=== PATIENT | male | born 1970 | race Caucasian/White ===

== ENCOUNTER 2021-07-08 14:02 | Emergency (ER) | payer MEDICARE ==
--- NOTE | 2021-07-08 14:11 | ERPHSYRPT ---
- History of Present Illness Time Seen by Provider: 07/08/21 14:10 Source: patient Exam Limitations: no limitations Physician History: This is a 51-year-old white male who has no known drug allergies and is not diabetic and presents with an injury to the anterior tibia of his left lower extremity. This occurred approximately 1230 this afternoon. Patient describes falling through floor and hitting his left pritchard. There was tenderness and swelling. The tenderness and swelling worsened and he felt that he may have injured it worse than he thought. Patient is able to walk on this area. He is not on any blood thinning medication. Occurred: this afternoon Injuries/Pain Location: lower extremity (Left lower leg) Loss of Consciousness: no loss of consciousness Quality: aching Severity of Pain-Max: mild Severity of Pain-Current: mild Modifying Factors: Improves With: movement Associated Symptoms (Fall): extremity injury (Left lower leg. Tibia midway) Allergies/Adverse Reactions: No Known Drug Allergies Allergy (Verified 07/08/21 14:32) Home Medications: Omeprazole/Sodium Bicarbonate [Zegerid 20 mg Capsule] 1 each PO DAILY 05/24/13 [History] lisinopriL [Lisinopril] 1 ea DAILY 07/08/21 [History] Hx Tetanus, Diphtheria Vaccination/Date Given: Yes Hx Influenza Vaccination/Date Given: No Hx Pneumococcal Vaccination/Date Given: No Travel Risk - International Travel Have you traveled outside of the country in past 3 weeks: No - Coronavirus Screening Are you exhibiting any of the following symptoms?: No Close contact with a COVID-19 positive Pt in past 14-21 Days: No - Review of Systems Constitutional: No Symptoms Eyes: No Symptoms Ears, Nose, & Throat: No Symptoms Respiratory: No Symptoms Cardiac: No Symptoms Abdominal/Gastrointestinal: No Symptoms Genitourinary Symptoms: No Symptoms Musculoskeletal: Injury (Left lower legmidway) Skin: Other (Abrasion sites at the level of injury) Neurological: No Symptoms Psychological: No Symptoms Endocrine: No Symptoms Hematologic/Lymphatic: No Symptoms Immunological/Allergic: No Symptoms - Past Medical History Pertinent Past Medical History: Yes Neurological History: No Pertinent History ENT History: No Pertinent History Cardiac History: Hypertension Respiratory History: Sleep Apnea Endocrine Medical History: No Pertinent History Musculoskeletal History: Other GI Medical History: GERD, Gallbladder Disease, Hemorrhoids, Hernia History: No Pertinent History Psycho-Social History: Depression Male Reproductive Disorders: No Pertinent History Other Medical History: degenerative right knee - Past Surgical History Past Surgical History: Yes Neuro Surgical History: No Pertinent History Cardiac: No Pertinent History Respiratory: No Pertinent History Gastrointestinal: Hernia Repair, Other Genitourinary: No Pertinent History Musculoskeletal: No Pertinent History Male Surgical History: No Pertinent History Other Surgical History: gastric bypass - Social History Smoking Status: Former smoker How long have you smoked: 25 yrs Exposure to second hand smoke: Yes Drug Use: marijuana Patient Lives Alone: No - Nursing Vital Signs Nursing Vital Signs: Initial Vital Signs Temperature 98.0 F 07/08/21 14:27 Pulse Rate 73 07/08/21 14:27 Respiratory Rate 18 07/08/21 14:27 Blood Pressure 135/80 07/08/21 14:27 O2 Sat by Pulse Oximetry 99 07/08/21 14:27 Pain Scale Pain Intensity 9 - [place] Coma Score Best Eye Response ([place]iles): (4) open spontaneously Best Verbal Response ([place]): (5) oriented Best Motor Response ([place]): (6) obeys commands [place] Total: 15 - Physical Exam General Appearance: no apparent distress, alert, anxiety, obese Head Injury: no evidence of injury Eye Exam: PERRL/EOMI, eyes nml inspection ENT Exam: airway nml Neck Exam: supple, trachea midline, full range of motion, normal alignment, normal inspection Respiratory/Chest Exam: No chest tenderness, No respiratory distress Gastrointestinal Exam: No tenderness Rectal Exam: not done Back Exam: normal inspection, normal range of motion, No CVA tenderness, No vertebral tenderness Extremity Exam: normal range of motion, capillary refill <3 sec, swelling (Left lower extremity mid tibia), tenderness (At the level of mid tibia on the left. There are superficial skin abrasions at this level as well), other (No active bleeding. No foreign body) Neurologic Exam: alert, oriented x 3, cooperative, information technology officer II-XII nml as tested, normal mood/affect, nml cerebellar function, nml station & gait, sensation nml Skin Exam: other (Abrasions with bruising at the level of injury in the left tibia.) SpO2 Interpretation: normal O2 Delivery: Room Air - Course Nursing assessment & vital signs reviewed: Yes Ordered Tests: Active Orders 24 hr Category Date Time Status LOWER LEG Stat Exams 07/08/21 15:29 Taken - Progress Progress: unchanged Progress Note: 07/08/21 16:20 X-ray left lower leg shows no evidence of any acute fracture or dislocation. There is no evidence of foreign body radiographically. Counseled pt/family regarding: diagnosis, need for follow-up, rad results - Departure Departure Disposition: Home Clinical Impression: Injury of left lower leg, Abrasion, left lower leg, initial encounter Condition: Stable Critical Care Time: No Referrals: PHUONG LLOYD MD [Primary Care Provider] - Additional Instructions: Keep abrasion site clean daily with soap and water. Do not use lotions ointments or creams to site. Cover the site with a bandage every day. Elevate the leg above level of heart when not ambulating. Ice pack to the site 3 times a day for the next 48 hours. Take your antibiotics as prescribed. Prescriptions: Cephalexin Mh 500 mg [Keflex 500 mg] 500 mg PO TID #21 cap
[2021-07-08 14:29] VITALS: O2SAT 99
[2021-07-08 16:32] VITALS: BP 137/82; PULSE 76
--- NOTE | 2021-07-08 16:36 | XRAY ---
Indication: Pain following fall. Comparison: None 2 view left lower leg demonstrates osteopenia, diffuse soft tissue swelling/edema, minimal/mild tricompartmental knee degenerative arthropathy, posterior knee fabella, and tiny anterior leg soft tissue calcified granulomas. No other bony, articular, or soft tissue abnormalities.
== END 2021-07-08 16:30 | disposition home or self-care (01) ==
LOC: ED 14:02
DX: S80.812A Abrasion, left lower leg, initial encounter (principal); W17.89XA Other fall from one level to another, initial encounter; Y93.89 Activity, other specified; Y92.89 Other specified places as the place of occurrence of the external cause; I10 Essential (primary) hypertension
CPT/HCPCS: 73590; 99283

== ENCOUNTER 2023-05-04 11:56 | Emergency (ER) | payer MEDICARE ==
[2023-05-04] MEDS ORDERED: TORAdol 30 mg Injection IM ONE (12:10)
[2023-05-04 12:17] VITALS: O2SAT 99
[2023-05-04] MEDS ORDERED: TORAdol 30 mg Injection ONE (12:23)
--- NOTE | 2023-05-04 12:37 | XRAY ---
Indication: Nonradiating low back pain. Multiple contiguous axial images obtained through the lumbar spine. Sagittal and coronal reformatted images obtained. Comparison: CT abdomen/pelvis January 19, 2018. Axial images negative for acute fracture, suspicious bony lesions, or spinal canal stenosis. Stable mild bilateral L5-S1 degenerative facet arthropathy. L4-L5 disc level again demonstrates mild annular disc osteophyte complex again greater as well as right with subsequent right foraminal stenosis. Sagittal and coronal reformatted images again demonstrates normal lumbar lordosis with minimal levoscoliosis and mild L2-L3/L4-L5 disc space narrowing. No acute compression fracture or subluxation. Visualized noncontrasted soft tissues again demonstrates minimal aortoiliac calcifications. Impression: Stable L2-L3 and L4-L5 degenerative disc disease. No new/acute findings.
--- NOTE | 2023-05-04 12:56 | ERPHSYRPT ---
- History of Present Illness Time Seen by Provider: 05/04/23 12:20 Source: patient Exam Limitations: no limitations Patient Subjective Stated Complaint: Patient states he believes he hurt his back on Thursday; states he twisted wrong when putting things away. C/O pain/injury to left lower back. Triage Nursing Assessment: Patient ambulated back to ER with a slow gait. Patient displaying s/s of pain when getting up out of chair in waiting room to g o back to ER room. Left lower back with no skin alterations noted; skin tone normal. Physician History: Patient is a 53-year-old white male who presents with a complaint of severe lower back pain. This pain has been present since he was lifting and twisting on . He denies any radiculopathy symptoms no problems with his bowel or bladder the pain is slightly worse on the left side.He does have a history of occasional episodes of back pain. Timing/Duration: day(s) (5) Method of Injury: twisted Quality: sharp, throbbing Back Pain Location: lumbar spine Severity of Pain-Max: severe Severity of Pain-Current: moderate Modifying Factors: Improves With: movement Associated Symptoms: No urinary incontinence, No loss of bowel control Previous symptoms: same symptoms as today Allergies/Adverse Reactions: No Known Drug Allergies Allergy (Verified 05/04/23 12:09) Home Medications: Omeprazole/Sodium Bicarbonate [Zegerid 20 mg Capsule] 1 each PO DAILY 05/24/13 [History] lisinopriL [Lisinopril] 1 ea DAILY 07/08/21 [History] Hx Tetanus, Diphtheria Vaccination/Date Given: Yes Hx Influenza Vaccination/Date Given: No Hx Pneumococcal Vaccination/Date Given: No Immunizations Up to Date: Yes Travel Risk - International Travel Have you traveled outside of the country in past 3 weeks: No - Coronavirus Screening Are you exhibiting any of the following symptoms?: No Close contact with a COVID-19 positive Pt in past 14-21 Days: No - Vaccine Status Have you recieved a Covid-19 vaccination: No - Review of Systems Constitutional: No Fever, No Chills Eyes: No Symptoms Ears, Nose, & Throat: No Symptoms Respiratory: No Cough, No Dyspnea Cardiac: No Chest Pain, No Edema, No Syncope Abdominal/Gastrointestinal: No Abdominal Pain, No Nausea, No Vomiting, No Diarrhea Genitourinary Symptoms: No Dysuria Musculoskeletal: Back Pain, No Neck Pain Skin: No Rash Neurological: No Dizziness, No Focal Weakness, No Sensory Changes Psychological: No Symptoms Endocrine: No Symptoms All Other Systems: Reviewed and Negative - Past Medical History Pertinent Past Medical History: Yes Neurological History: No Pertinent History ENT History: No Pertinent History Cardiac History: Hypertension Respiratory History: Sleep Apnea Endocrine Medical History: No Pertinent History Musculoskeletal History: Other GI Medical History: GERD, Gallbladder Disease, Hemorrhoids, Hernia History: No Pertinent History Psycho-Social History: Depression Male Reproductive Disorders: No Pertinent History Other Medical History: degenerative right knee - Past Surgical History Past Surgical History: Yes Neuro Surgical History: No Pertinent History Cardiac: No Pertinent History Respiratory: No Pertinent History Gastrointestinal: Hernia Repair, Other Genitourinary: No Pertinent History Musculoskeletal: No Pertinent History Male Surgical History: No Pertinent History Other Surgical History: gastric bypass - Social History Smoking Status: Former smoker How long have you smoked: 25 yrs Exposure to second hand smoke: Yes Drug Use: marijuana Patient Lives Alone: No - Nursing Vital Signs Nursing Vital Signs: Initial Vital Signs Temperature 98 F 05/04/23 12:10 Pulse Rate 66 05/04/23 12:10 Respiratory Rate 18 05/04/23 12:10 Blood Pressure 155/95 05/04/23 12:10 O2 Sat by Pulse Oximetry 99 05/04/23 12:10 Pain Scale Pain Intensity [Left lower 7 back] Pain Intensity 8 - Physical Exam General Appearance: mild distress, alert Eye Exam: PERRL/EOMI, eyes nml inspection Neck Exam: normal inspection, non-tender, supple, full range of motion, No meningismus, No midline tenderness Respiratory Exam: normal breath sounds, lungs clear, No respiratory distress Cardiovascular Exam: regular rate/rhythm, normal heart sounds Gastrointestinal Exam: soft, No tenderness, No mass Back Exam: decreased range of motion, other Extremity Exam: normal inspection, normal range of motion, No calf tenderness, No pedal edema Neurologic Exam: alert, oriented x 3, cooperative, underwriting internship II-XII nml as tested, normal mood/affect, nml station & gait, sensation nml, No motor deficits Skin Exam: normal color, warm, dry, No rash SpO2: 99 - Course Nursing assessment & vital signs reviewed: Yes - CT Exams Lumbar Spine CT Interpretation: Tele-radiologist Report, Other (Shows 2 levels of degenerative disc disease L2-3 and L4-5.) Ordered Tests: Active Orders 24 hr Category Date Time Status LUMBAR SPINE W/O [CT] Stat Exams 05/04/23 12:10 Completed Medication Summary Discontinued Medications Generic Name Dose Route Start Last Admin Trade Name Annalee PRN Reason Stop Dose Admin Ketorolac Tromethamine 60 mg 05/04/23 12:10 05/04/23 12:25 Ketorolac Tromethamine 30 Mg/Ml Inj IM 05/04/23 12:11 60 mg STAT ONE Administration Ketorolac Tromethamine Confirm 05/04/23 12:23 Ketorolac Tromethamine 30 Mg/Ml Inj Administered 05/04/23 12:24 Dose 60 mg .ROUTE .STK-MED ONE - Progress Progress: unchanged Medical Desision Making - Diagnostic Testing Radiological Interpretation: Reviewed by me - Risk of complications Low Risk: Low risk of morbidity from additional dx testing or treatment - Departure Departure Disposition: Home Clinical Impression: Degenerative disc disease Condition: Stable Critical Care Time: No Referrals: PHUONG LLOYD MD [Primary Care Provider] - Follow up/PCP as directed Instructions: Low Back Pain (DC) Prescriptions: Oxycodone HCl/Acetaminophen [Percocet 5-325 mg Tablet] 1 each PO Q6H 3 Days #12 tablet MDD 4 Diclofenac Sodium 50 mg [Voltaren 50 mg] 50 mg PO TID 5 Days #15 tablet MDD 3
[2023-05-04 13:14] VITALS: BP 110/73; PULSE 76
== END 2023-05-04 13:14 | disposition home or self-care (01) ==
LOC: ED 11:56
DX: M51.36 Other intervertebral disc degeneration, lumbar region (principal); M54.50 Low back pain, unspecified; I10 Essential (primary) hypertension; Z79.891 Long term (current) use of opiate analgesic; Z79.899 Other long term (current) drug therapy; Z28.310 Unvaccinated for COVID-19
CPT/HCPCS: 72131; 96372; 99283; J1885

== ENCOUNTER 2025-01-13 15:27 | Emergency (ER) | payer MEDICARE ==
--- NOTE | 2025-01-13 15:50 | ERPHSYRPT ---
- History of Present Illness Time Seen by Provider: 01/13/25 15:49 Allergies/Adverse Reactions: No Known Drug Allergies Allergy (Verified 01/13/25 16:36) Home Medications: Omeprazole/Sodium Bicarbonate [Zegerid 20 mg Capsule] 1 each PO DAILY 05/24/13 [History] lisinopriL [Lisinopril] 1 ea DAILY 07/08/21 [History] Hx Tetanus, Diphtheria Vaccination/Date Given: Yes Hx Influenza Vaccination/Date Given: No Hx Pneumococcal Vaccination/Date Given: No - Past Medical History Pertinent Past Medical History: Yes Neurological History: No Pertinent History ENT History: No Pertinent History Cardiac History: Hypertension Respiratory History: Sleep Apnea Endocrine Medical History: No Pertinent History Musculoskeletal History: Other GI Medical History: GERD, Gallbladder Disease, Hemorrhoids, Hernia History: No Pertinent History Psycho-Social History: Depression Male Reproductive Disorders: No Pertinent History Other Medical History: degenerative right knee - Past Surgical History Past Surgical History: Yes Neuro Surgical History: No Pertinent History Cardiac: No Pertinent History Respiratory: No Pertinent History Gastrointestinal: Hernia Repair, Other Genitourinary: No Pertinent History Musculoskeletal: No Pertinent History Male Surgical History: No Pertinent History Other Surgical History: gastric bypass - Social History Smoking Status: Former smoker How long have you smoked: 25 yrs Exposure to second hand smoke: Yes Drug Use: marijuana Patient Lives Alone: No - Nursing Vital Signs Nursing Vital Signs: Initial Vital Signs Pulse Rate 82 01/13/25 16:33 Respiratory Rate 31 H 01/13/25 16:33 Blood Pressure 124/83 01/13/25 16:33 O2 Sat by Pulse Oximetry 99 01/13/25 16:33 Pain Scale Pain Intensity 0 - Course Nursing assessment & vital signs reviewed: Yes EKG Interpreted by Me: RATE (63), Sinus Rhythm, NORMAL AXIS, NORMAL INTERVALS, NORMAL QRS, NORMAL ST-T (No acute ischemia on today's twelve-lead EKG. QTc is 4 34), Other Ordered Tests: Active Orders 24 hr Category Date Time Status ABDOMEN AND PELVIS W/0 CONTRAS [CT] Stat Exams 01/13/25 16:49 Completed AMYLASE Stat Lab 01/13/25 16:45 Completed CBC W DIFF Stat Lab 01/13/25 16:45 Completed CMP Stat Lab 01/13/25 16:45 Completed LIPASE Stat Lab 01/13/25 16:45 Completed MAGNESIUM Stat Lab 01/13/25 16:45 Completed TROPONIN Q4H Lab 01/13/25 16:45 Completed TROPONIN Q4H Lab 01/13/25 22:30 Ordered Lab/Rad Data: Laboratory Result Diagrams 01/13/25 16:45 01/13/25 16:45 Laboratory Results 01/13/25 01/13/25 01/13/25 Range/Units 16:45 16:45 16:45 WBC 6.0 (4.23-9.07) x10^3/uL RBC 5.33 (4.63-6.08) x10^6/uL Hgb 10.5 L (13.7-17.5) g/dL Hct 35.0 L (40.1-51.0) % MCV 65.7 L (79.0-92.2) fL MCH 19.7 L (25.7-32.2) pg MCHC 30.0 L (32.3-36.5) g/dL RDW 17.1 H (11.6-14.4) % Plt Count 327 (163-337) x10^3/uL MPV 9.8 (9.4-12.4) fL Gran % 64.7 (34.0-67.9) % Immature Gran % (Auto) 0.3 (0.001-0.429) % Nucleat RBC Rel Count 0.0 (0.00-0.2) % Eos # (Auto) 0.24 (0.04-0.54) x10^3/uL Immature Gran # (Auto) 0.02 (0.001-0.031) x10^3u/L Absolute Lymphs (auto) 1.19 L (1.32-3.57) x10^3/uL Absolute Monos (auto) 0.62 (0.30-0.82) x10^3/uL Absolute Nucleated RBC 0.00 (0.00-0.012) x10^3u/L Lymphocytes % 19.9 L (21.8-53.1) % Monocytes % 10.4 (5.3-12.2) % Eosinophils % 4.0 (0.8-7.0) % Basophils % 0.7 (0.2-1.2) % Absolute Granulocytes 3.87 (1.78-5.38) x10^3/uL Basophils # 0.04 (0.01-0.08) x10^3/uL Sodium 138 (135-145) mmol/L Potassium 4.2 (3.5-5.1) mmol/L Chloride 102 (98-107) mmol/L Carbon Dioxide 26 (22-30) mmol/L Anion Gap 13.8 (5-15) MEQ/L BUN 21 H (9-20) mg/dL Creatinine 0.83 (0.66-1.25) mg/dL Estimated GFR 104.7 ML/MIN Glucose 102 (74-106) mg/dL Calcium 9.3 (8.4-10.2) mg/dL Magnesium 2.1 (1.6-2.3) mg/dL Total Bilirubin 0.70 (0.2-1.3) mg/dL AST 35 (17-59) U/L ALT 23 (0-50) U/L Alkaline Phosphatase 71 (38-126) U/L Troponin I < 0.012 (0.000-0.033) ng/mL Serum Total Protein 7.4 (6.3-8.2) g/dL Albumin 4.5 (3.5-5.0) g/dL Amylase 46 (30-110) U/L Lipase 40 (23-300) U/L - Progress Progress: unchanged, re-examined Progress Note: 01/13/25 18:58 My medical decision making in the assignment of moderate complexity to this patient's medical issue today is based on review of the patient's past medical history, review the patient's medication list, reviewed patient drug allergy list, history of present illness and physical findings on examination. The workup in this patient includes placement of a intravenous line, CBC, CMP, amylase, lipase, CT scan of the abdomen pelvis without contrast, twelve-lead EKG, troponin level. Differential diagnosis includes but is not limited to bowel obstruction, acute myocardial infarction, electrolyte abnormalities, arrhythmia, bowel perforation The laboratory data results were reviewed and interpreted by me. There were no evidence of any acute, urgent medical issues based on the laboratory data results. The CT scan of the abdomen pelvis without contrast was interpreted by the radiologist and I reviewed the impression. Patient states status post cholecystectomy and gastric bypass with no gross abnormalities. There is mild hepatomegaly present and a right renal cyst. There is also evidence of d iverticulosis that is stable when compared to prior studies. Counseled pt/family regarding: lab results, diagnosis, need for follow-up, rad results Medical Desision Making - Diagnostic Testing Diagnostic test were ordered, analyzed, and reviewed by me: Yes Radiological Interpretation: Reviewed by me, Teleradiologist Report - Risk of complications Low Risk: Low risk of morbidity from additional dx testing or treatment - Departure Departure Disposition: Home Clinical Impression: Epigastric discomfort Condition: Stable Critical Care Time: No Additional Instructions: Drink plenty of clear liquids. Advance your diet to your typical diet as tolerated. Continue all your medications as prescribed. Call your surgeon on 01/16/2025, to make arrangements for follow-up appointment to be seen in the next 3 to 5 days.
[2025-01-13 16:47] VITALS: TEMP 97.8
[2025-01-13 16:59] LABS: Absolute Neutrophil Ct (ANC) 3.87 x10^3/uL (1.78-5.38); BASOPHIL % 0.7 % (0.2-1.2); Basophil (Absolute #) 0.04 x10^3/uL (0.01-0.08); Eosinophil (Absolute #) 0.24 x10^3/uL (0.04-0.54); Hemoglobin 10.5 g/dL (13.7-17.5); IMMATURE GRAN # 0.02 x10^3u/L (0.001-0.031); IMMATURE GRAN % 0.3 % (0.001-0.429); Lymphocyte (Absolute #) 1.19 x10^3/uL (1.32-3.57); Lymphocytes % 19.9 % (21.8-53.1); Mean Cell Volume 65.7 fL (79.0-92.2); Mean Corpuscular Hemoglobin 19.7 pg (25.7-32.2); Mean Platelet Volume 9.8 fL (9.4-12.4); Monocyte (Absolute #) 0.62 x10^3/uL (0.30-0.82); Monocytes % 10.4 % (5.3-12.2); Neutrophil % 64.7 % (34.0-67.9); Platelet Count 327 x10^3/uL (163-337); Red Blood Count 5.33 x10^6/uL (4.63-6.08); Red Cell Distribution Width 17.1 % (11.6-14.4)
[2025-01-13 17:05] LABS: ALBUMIN 4.5 g/dL (3.5-5.0); ANION GAP 13.8 MEQ/L (5-15); BILIRUBIN,TOTAL 0.7 mg/dL (0.2-1.3); Calcium 9.3 mg/dL (8.4-10.2); Creatinine 1 0.83 mg/dL (0.66-1.25); EST GLOMERULAR FILTRATION RATE 104.7 ML/MIN; MAGNESIUM 2.1 mg/dL (1.6-2.3); Potassium 4.2 mmol/L (3.5-5.1); Total Protein 7.4 g/dL (6.3-8.2)
--- NOTE | 2025-01-13 18:23 | XRAY ---
CLINICAL HISTORY: ABD pain after oral intake COMPARISON: CT dated 01/19/2018. TECHNIQUE: Non-contrast CT of the abdomen and pelvis was performed, with the following protocol: axial images, and reconstructed coronal and sagittal images. No intravenous contrast was administered. One of the following dose reduction techniques was utilized for this exam: Automated exposure control, adjustment of the mA and/or kV according to patient size, and use of iterative reconstruction. DLP: 1303.62 mGy-cm, CTDI: 23.62 mGy. FINDINGS: Abdomen: Liver: Mild hepatomegaly stable. Normal in shape, and density. No focal lesions, cysts, or masses were identified. Gallbladder and Biliary System: surgically removed with lavell noted and clear operative bed, Pancreas: Pancreatic head, body, and tail are visualized and appear normal in size and density. No pancreatic masses or calcifications were noted. Spleen: Normal in size, shape, and density. No splenic lesions or masses were identified. Kidneys and Adrenal Glands: Both kidneys are normal in size, shape, and position. Cortical thickness is within normal limits. No renal calculi or hydronephrosis. Adrenal glands are unremarkable. A small hyperdense right upper polar cortical lesion measuring about 6 mm is likely a complicated cyst. Stable. A right upper calyceal renal faint hyperdensity, possible renal gravel Appendix: The appendix is normal in size without yasmine appendiceal fat stranding and without an appendicolith. No evidence of appendiceal abscess or perforation. Pelvis: Urinary Bladder: Normal in contour and wall thickness. No intraluminal lesions. prostate and seminal vesicles are normal Peritoneal and Retroperitoneal Structures: No free fluid or abnormal fluid collections were identified within the abdomen or pelvis. No lymphadenopathy was noted. Bowel: Post gastric bypass with no gross abnormalities. few non complicated colonic divertoculsis. The visualized bowel loops are normal in caliber and appearance. No evidence of bowel obstruction or wall thickening. Bones and Soft Tissues: Pelvic bones and soft tissues are unremarkable. No fractures or abnormal masses were identified. Diffuse spondylosis of scanned spine. IMPRESSION: 1. Status post cholecystectomy and gastric by pass with no gross abnormality. stable 2. Mild hepatomegaly. Stable 3. A small hyperdense right renal upper polar cortical lesion measuring about 6 mm likely cyst with proteinaceous or hemorrhagic content. Stable 4. A right upper calyceal renal faint hyperdensity, possible renal concretion. new finding 5. few non-complicated colonic diverticulosis. stable 6. Diffuse spondylosis of the scanned spine. stable Electronically Signed by: Neida Junior MD. (01/13/2025 18:19:22 EST)
[2025-01-13 18:33] VITALS: O2SAT 98
[2025-01-13 19:08] VITALS: BP 126/91; PULSE 59; RESP 19
== END 2025-01-13 19:15 | disposition home or self-care (01) ==
LOC: ED 15:27
DX: R10.13 Epigastric pain (principal); I10 Essential (primary) hypertension; Z79.899 Other long term (current) drug therapy
CPT/HCPCS: 36415; 74176; 80053; 82150; 83690; 83735; 84484; 85025; 93005; 99284; 99285